=== PATIENT | male | born 2000 | race Caucasian/White ===

== ENCOUNTER 2020-07-19 14:28 | Emergency (ER) | payer SELFPAY ==
[~2020-07-19] VITALS: Ht 190.5 cm; Wt 90.6 kg
[2020-07-19 14:55] LABS: BASOPHILS % (AUTO) 1 % (0-1); EOSINOPHILS % (AUTO) 0 % (1-7); LYMPHOCYTES % (AUTO) 22 % (22-44); MD NO; MEAN CORPUSCULAR HEMOGLOBIN 29.3 pg (27.5-34.5); MEAN CORPUSCULAR HGB CONC 34.9 g/dL (33.2-36.2); MEAN PLATELET VOLUME 9.4 fL (7.4-10.4); MONOCYTES % (AUTO) 9 % (2-9); NEUTROPHILS % (AUTO) 68 % (42-75); PLATELET COUNT 254 x10^3/uL (130-400); RED BLOOD COUNT 5.63 x10^6/uL (4.38-5.82); RED CELL DISTRIBUTION WIDTH 13.6 % (9.4-14.8)
[2020-07-19 15:06] LABS: ALANINE AMINOTRANSFERASE 27 U/L (12-78); ALBUMIN 5.1 g/dL (3.4-5.0); ANION GAP 10 mmol/L (5-15); CALCIUM 9.7 mg/dL (8.5-10.1); CHLORIDE 110 mmol/L (98-107); CREATININE 1.19 mg/dL (0.7-1.3)
[2020-07-19 15:08] LABS: ALKALINE PHOSPHATASE 66 U/L (45-117); BILIRUBIN,TOTAL 0.8 mg/dL (0.2-1.0); TOTAL PROTEIN 8.8 g/dL (6.4-8.2)
--- NOTE | 2020-07-19 15:42 | NUR ---
SENIOR DIRECTOR OF STRATEGY: PT AMBULATORY TO ROOM FROM LOBBY WITH STEADY GAIT AT THIS TIME WITH PRIMARY RN MIESHA
--- NOTE | 2020-07-19 15:54 | NUR ---
THIS IS A 19 YEAR OLD MALE WHO STATES "I'VE HAD A REALLY FOGGY HEAD, NAUSEA, SOMETIMES I GET GAGGY. SWEATY, CHILLS. STARTED LAST SUNDAY". C/O LOSS OF APPETITE. DENIES DIARRHEA. ABD PAIN ON/OFF. NO SICK CONTACTS. PER MOM PT HAS BEEN VERY STRESSED LATELY WORKING 2 JOBS. MOTHER WANTS A RAPID COVID TEST FOR PT WHILE THEY ARE HERE.
--- NOTE | 2020-07-19 16:59 | NUR ---
REPORT TO PREETHI PLAN OF CARE DISCUSSED
[2020-07-19 17:19] VITALS: BP 136/70
--- NOTE | 2020-07-19 17:27 | NUR ---
ASSUMED CARE OF PT FROM JENNIFER WHITESIDE. PT RESTING IN [facility], MONITORING IN PLACE, NADN AT THIS TIME, MOM AT BEDSIDE, NO NEEDS PER PT AND MOM, WCTM.
== END 2020-07-19 18:02 | disposition home or self-care (01) ==
LOC: ED 17:55
DX: R63.0 Anorexia (principal); Z20.822 Contact with and (suspected) exposure to COVID-19; R53.83 Other fatigue
CPT/HCPCS: 36415; 80053; 85025; 87635; 99283